=== PATIENT | male | born 1940 | race Caucasian/White ===

== ENCOUNTER 2019-07-06 14:00 | Emergency (ER) | payer MEDICARE ==
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
== END 2019-07-06 15:51 | disposition home or self-care (01) ==
LOC: ED 14:00
DX: S20.212A Contusion of left front wall of thorax, initial encounter (principal); S39.012A Strain of muscle, fascia and tendon of lower back, initial encounter; Z79.899 Other long term (current) drug therapy; V49.49XA Driver injured in collision with other motor vehicles in traffic accident, initial encounter; Y93.89 Activity, other specified; Y92.89 Other specified places as the place of occurrence of the external cause; Y99.8 Other external cause status
CPT/HCPCS: 72100; 72170; 93005; 99283